=== PATIENT | male | born 1995 | race Caucasian/White ===

== ENCOUNTER 2017-12-08 10:51 | Emergency (ER) | payer SELFPAY ==
[2017-12-08] MEDS ORDERED: LIDOCAINE 1% W/EPI 1:100,000 MDV 50 ML VIAL ONE (13:17)
--- NOTE | 2017-12-08 13:18 | EDPHYS ---
Physician Documentation [facility] Name: Efe Camp Age: 21 yrs Sex: Male : 1995 Arrival Date: 12/08/2017 Time: 10:54 Bed 12 Private MD: None, None ED Physician Cong Ramos HPI: 12/08 13:10 This 21 yrs old Male presents to ER via Ambulatory with complaints of rajni Laceration - FINGER. 13:10 The patient or guardian reports a laceration, clean, 2.5 cm(s), pain. The complaints rajni affect the MCP of right index finger. Context: The problem was sustained at work, resulted from sheet metal. Onset: The symptoms/episode began/occurred just prior to arrival. Modifying factors: The symptoms are alleviated by holding still, the symptoms are aggravated by movement. Associated signs and symptoms: The patient has no apparent associated signs or symptoms. The patient has not experienced similar symptoms in the past. Historical: - Allergies: 11:23 No Known Allergies; ph - Home Meds: 11:23 None [Active]; ph - PMHx: 11:23 None; ph - PSHx: 11:23 None; ph - Immunization history:: Last tetanus immunization: up to date. - Social history:: Smoking status: Patient/guardian denies using tobacco. - Family history:: not pertinent. - Ebola Screening: : Patient negative for fever greater than or equal to 101.5 degrees Fahrenheit, and additional compatible Ebola Virus Disease symptoms Patient denies exposure to infectious person Patient denies travel to an Ebola-affected area in the 21 days before illness onset No symptoms or risks identified at this time. ROS: 13:10 Constitutional: Negative for fever, chills, and weight loss, Eyes: Negative for injury, rajni pain, redness, and discharge, ENT: Negative for injury, pain, and discharge, Neck: Negative for injury, pain, and swelling, Cardiovascular: Negative for chest pain, palpitations, and edema, Respiratory: Negative for shortness of breath, cough, wheezing, and pleuritic chest pain, Abdomen/GI: Negative for abdominal pain, nausea, vomiting, diarrhea, and constipation, Back: Negative for injury and pain, : Negative for injury, bleeding, discharge, and swelling, Skin: Negative for injury, rash, and discoloration, Neuro: Negative for headache, weakness, numbness, tingling, and seizure, Psych: Negative for depression, anxiety, suicide ideation, homicidal ideation, and hallucinations, Allergy/Immunology: Negative for hives, rash, and allergies, Endocrine: Negative for neck swelling, polydipsia, polyuria, polyphagia, and marked weight changes, Hematologic/Lymphatic: Negative for swollen nodes, abnormal bleeding, and unusual bruising. 13:10 MS/extremity: Positive for pain, tenderness, of the dorsal aspect of proximal phalanx of right index finger. Exam: 13:10 Constitutional: This is a well developed, well nourished patient who is awake, alert, rajni and in no acute distress. Head/Face: Normocephalic, atraumatic. Eyes: Pupils equal round and reactive to light, extra-ocular motions intact. Lids and lashes normal. Conjunctiva and sclera are non-icteric and not injected. Cornea within normal limits. Periorbital areas with no swelling, redness, or edema. ENT: Nares patent. No nasal discharge, no septal abnormalities noted. Tympanic membranes are normal and external auditory canals are clear. Oropharynx with no redness, swelling, or masses, exudates, or evidence of obstruction, uvula midline. Mucous membranes moist. Neck: Trachea midline, no thyromegaly or masses palpated, and no cervical lymphadenopathy. Supple, full range of motion without nuchal rigidity, or vertebral point tenderness. No Meningismus. Chest/axilla: Normal chest wall appearance and motion. Nontender with no deformity. No lesions are appreciated. Cardiovascular: Regular rate and rhythm with a normal S1 and S2. No gallops, murmurs, or rubs. Normal PMI, no JVD. No pulse deficits. Respiratory: Lungs have equal breath sounds bilaterally, clear to auscultation and percussion. No rales, rhonchi or wheezes noted. No increased work of breathing, no retractions or nasal flaring. Abdomen/GI: Soft, non-tender, with normal bowel sounds. No distension or tympany. No guarding or rebound. No evidence of tenderness throughout. Back: No spinal tenderness. No costovertebral tenderness. Full range of motion. Male : Normal genitalia with no discharge or lesions. Skin: Warm, dry with normal turgor. Normal color with no rashes, no lesions, and no evidence of cellulitis. Neuro: Awake and alert, GCS 15, oriented to person, place, time, and situation. Cranial nerves II-XII grossly intact. Motor strength 5/5 in all extremities. Sensory grossly intact. Cerebellar exam normal. Normal gait. Psych: Awake, alert, with orientation to person, place and time. Behavior, mood, and affect are within normal limits. 13:10 Musculoskeletal/extremity: ROM: no acute changes, intact in all extremities, Circulation is intact in all extremities. Sensation intact. Compartment Syndrome exam of affected extremity: is normal. DVT Exam: no swelling, no tenderness, negative Homans' sign noted on exam, no appreciated bluish discoloration, no erythema, no increased warmth, pain. Vital Signs: 11:22 BP 120 / 66; Pulse 57; Resp 18; Temp 98.2; Pulse Ox 98% on R/A; Weight 61.23 kg; Height ph 5 ft. 9 in. (175.26 cm); Pain 8/10; 11:22 Body Mass Index 19.94 (61.23 kg, 175.26 cm) ph Laceration: 13:10 Wound Repair of 2.5cm ( 1.0in ) subcutaneous laceration to dorsal aspect of proximal rajni phalanx of right index finger. Linear shaped.. Distal neuro/vascular/tendon intact. Anesthesia: Local anesthetic administered with 5 mls of 1% lidocaine w/ Epi. Wound prep: Simple cleansing by me. Skin closed with 4 1-0 Prolene using interrupted sutures and sterile technique. Dressed with Neosporin, non-adherent dressing. Patient tolerated well. MDM: 13:04 Patient medically screened. [facility] 13:10 Data reviewed: vital signs, nurses notes. [facility] 12/08 13:09 Order name: Sutures, Prolene; Complete Time: 13:46 [facility] 12/08 13:09 Order name: Dressing - Wound; Complete Time: 13:46 [facility] 12/08 13:09 Order name: Gloves, Sterile; Complete Time: 13:46 [facility] 12/08 13:09 Order name: Setup Suture Tray; Complete Time: 13:46 [facility] 12/08 13:09 Order name: Wound Care; Complete Time: 14:39 [facility] Administered Medications: 13:30 Drug: Lidocaine-Epinephrine -1%: (1:100,000) 4 ml Volume: 20 ml; Route: Infiltration; iw 13:41 Drug: KeFLEX 500 mg Route: PO; iw 13:50 Follow up: Response: No adverse reaction iw Disposition: 12/08/17 13:17 Discharged to Home. Impression: Laceration with foreign body of finger without damage to nail. - Condition is Stable. - Discharge Instructions: Laceration Care, Adult, Laceration Care, Adult, [id number]. - Prescriptions for Keflex 500 mg Oral Capsule - take 1 capsule by ORAL route every 6 hours for 7 days; 28 capsule. Motrin IB 200 mg Oral Tablet - take 2 tablet by ORAL route every 6 hours As needed as needed with food; 30 tablet. - Medication Reconciliation Form, Thank You Letter, Antibiotic Education, Prescription Opioid Use form. - Follow up: Private Physician; When: 5 - 6 days; Reason: Recheck today's complaints, Re-evaluation by your physician. - Problem is new. - Symptoms have improved. Signatures: Dispatcher [employer] EDCong Day MD MD cha Williams, Irene, RN RN iw Zaira Souza RN RN ph Corrections: (The following items were deleted from the chart) 13:48 13:17 12/08/2017 13:17 Discharged to Home. Impression: Laceration with foreign body of iw finger without damage to nail. Condition is Stable. Forms are Medication Reconciliation Form, Thank You Letter, Antibiotic Education, Prescription Opioid Use. Follow up: Private Physician; When: 5 - 6 days; Reason: Recheck today's complaints, Re-evaluation by your physician. Problem is new. Symptoms have improved. rajni
--- NOTE | 2017-12-08 13:18 | ER ---
Nurse's Notes [facility] Name: Efe Camp Age: 21 yrs Sex: Male : 1995 Arrival Date: 12/08/2017 Time: 10:54 Bed 12 Private MD: None, None Diagnosis: Laceration with foreign body of finger without damage to nail Presentation: 12/08 11:21 Presenting complaint: Patient states: I was working in the attic and I cut my finger." ph Laceration noted to R index finger, bleeding controlled. Transition of care: patient was not received from another setting of care. Complicating Factors: There are no complicating factors for this patient. Onset of symptoms was December 08, 2017. Risk Assessment: Do you want to hurt yourself or someone else? Patient reports no desire to harm self or others. Initial Sepsis Screen: Does the patient meet any 2 criteria? No. Patient's initial sepsis screen is negative. Does the patient have a suspected source of infection? No. Patient's initial sepsis screen is negative. Care prior to arrival: None. 11:21 Method Of Arrival: Ambulatory ph 11:21 Acuity: PRANEETH 4 ph Historical: - Allergies: 11:23 No Known Allergies; ph - Home Meds: 11:23 None [Active]; ph - PMHx: 11:23 None; ph - PSHx: 11:23 None; ph - Immunization history:: Last tetanus immunization: up to date. - Social history:: Smoking status: Patient/guardian denies using tobacco. - Family history:: not pertinent. - Ebola Screening: : Patient negative for fever greater than or equal to 101.5 degrees Fahrenheit, and additional compatible Ebola Virus Disease symptoms Patient denies exposure to infectious person Patient denies travel to an Ebola-affected area in the 21 days before illness onset No symptoms or risks identified at this time. Screenin:46 Abuse screen: Denies threats or abuse. Denies injuries from another. Nutritional iw screening: No deficits noted. Tuberculosis screening: No symptoms or risk factors identified. Fall Risk None identified. Assessment: 13:20 General: Appears in no apparent distress. Behavior is calm, cooperative. Pain: iw Complains of pain in right hand. Neuro: Level of Consciousness is awake, alert, obeys commands. Respiratory: Respiratory effort is even, unlabored. Derm: Skin is intact, is healthy with good turgor. Musculoskeletal: Range of motion: intact in all extremities. Injury Description: Laceration sustained to MCP of right index finger is contaminated, 0.5 to 2.5 cm long. Vital Signs: 11:22 BP 120 / 66; Pulse 57; Resp 18; Temp 98.2; Pulse Ox 98% on R/A; Weight 61.23 kg; Height ph 5 ft. 9 in. (175.26 cm); Pain 8/10; 11:22 Body Mass Index 19.94 (61.23 kg, 175.26 cm) ph ED Course: 10:54 Patient arrived in ED. sb2 10:55 None, None is Private Physician. sb2 11:22 Triage completed. ph 11:23 Arm band placed on Patient placed in waiting room, Patient notified of wait time. ph 13:02 Emerita Gibson, RN is Primary Nurse. iw 13:04 Cong Ramos MD is Attending Physician. rajni 13:20 Patient has correct armband on for positive identification. iw 13:25 Assist provider with laceration repair on MCP of right index finger that was between iw 2.6 to 7.5 cm using sutures. Set up tray. Performed by Cong Ramos MD. 13:47 Patient did not have IV access during this emergency room visit. iw Administered Medications: 13:30 Drug: Lidocaine-Epinephrine -1%: (1:100,000) 4 ml Volume: 20 ml; Route: Infiltration; iw 13:41 Drug: KeFLEX 500 mg Route: PO; iw 13:50 Follow up: Response: No adverse reaction iw Outcome: 13:17 Discharge ordered by . [facility] 13:46 Discharged to home ambulatory, with family, with friend. iw 13:46 Condition: good 13:46 Discharge instructions given to patient, family, Instructed on discharge instructions, follow up and referral plans. medication usage, Demonstrated understanding of instructions, follow-up care, medications, Prescriptions given X 2. 13:48 Patient left the ED. iw Signatures: Cong Ramos MD MD cha Williams, Irene, RN RN Zaira Souza RN RN Maira Banks sb2
[2017-12-08] MEDS ORDERED: CEPHALEXIN 250 MG CAP ONE (13:43)
== END 2017-12-08 13:48 | disposition home or self-care (01) ==
LOC: ER 10:51
PROC: 0JQJ0ZZ Repair Right Hand Subcutaneous Tissue and Fascia, Open Approach (ICD-10-PCS; principal; 2017-12-08)
DX: S61.210A Laceration without foreign body of right index finger without damage to nail, initial encounter (principal); W26.8XXA Contact with other sharp object(s), not elsewhere classified, initial encounter; Y93.9 Activity, unspecified; Y92.89 Other specified places as the place of occurrence of the external cause; Y99.8 Other external cause status
CPT/HCPCS: 99283